=== PATIENT | female | born 1955 | race Caucasian/White ===

== ENCOUNTER → 2020-09-12 | Outpatient (CLI) | payer OTHER ==
[~2020-09-12] VITALS: Ht 160 cm; Wt 59.0 kg
[~2020-09-12] MED LIST: CBD OIL; CLARITIN10 MG PO; CYMBALTA 30 MG30 MG PO; DOCUSATE SODIU100 MG PO; OMEPRAZOLE20 M1 PO; PERCOCET 5-3251 EACH PO; PROMETHAZINE12.5 M1 PO; RELAFEN 750 MG750 MG PO; TRAZODONE HCL100 MG PO; ZOFRAN ODT 4 MG4 MG PO
== END ==
LOC: OPSV 11:57
DX: M80.042A Age-related osteoporosis with current pathological fracture, left hand, initial encounter for fracture (principal)
CPT/HCPCS: 96372

== ENCOUNTER → 2021-03-13 | Outpatient (CLI) | payer OTHER ==
[~2021-03-13] VITALS: Ht 160 cm; Wt 59.9 kg
== END ==
LOC: OPSV 11:51
DX: M80.00XA Age-related osteoporosis with current pathological fracture, unspecified site, initial encounter for fracture (principal)
CPT/HCPCS: 96372

== ENCOUNTER → 2021-09-08 | Outpatient (CLI) | payer OTHER ==
[~2021-09-08] VITALS: Ht 160 cm; Wt 59.0 kg
== END ==
LOC: OPSV 13:50
DX: M81.0 Age-related osteoporosis without current pathological fracture (principal); K90.49 Malabsorption due to intolerance, not elsewhere classified
CPT/HCPCS: 96372